=== PATIENT | female | born 1965 | race Caucasian/White ===

== ENCOUNTER → 2024-03-16 07:36 | Outpatient (REF) | payer BC, SELFPAY ==
[2024-03-16 08:46] LABS: % Eosinophils 2.9 % (0-6); % Immature Granulocytes 0.3 % (0-0.5); % Lymphocytes 41.2 % (20.5-51.1); % Monocytes 7.7 % (1.7-9.3); % Neutrophils 46.9 % (42.2-75.2); Absolute Basophils 0.1 10^3/uL (0-0.2); Absolute Eosinophils 0.2 10^3/uL (0-0.7); Absolute Lymphocytes 2.6 10^3/uL (1.2-3.4); Absolute Monocytes 0.5 10^3/uL (0.1-0.6); Absolute Neutrophils 2.9 10^3/uL (1.4-6.5); Hematocrit 43.1 % (37.0-47.0); Hemoglobin 14.2 g/dL (12.0-16.0); Mean Corp Hgb Conc. 32.9 g/dL (33.0-37.0); Mean Corpuscular Hgb 30.3 pg (27.0-31.0); Mean Corpuscular Volume 91.9 fL (81.0-99.0); Mean Platelet Volume 9.5 fL (7.4-10.4); Nucleated Red Blood Cells % 0 %; Platelet Count 258 10^3/uL (130-400); Red Blood Cell Count 4.69 10^6/uL (4.20-5.40); Red Cell Dist. Width 13.1 % (11.5-14.5); White Blood Cell Count 6.2 10^3/uL (4.8-10.8)
[2024-03-16 08:53] LABS: Urine Albumin Negative (Neg - Trace); Urine Bilirubin Negative (Negative); Urine Character Clear (Clear); Urine Color Yellow; Urine Glucose Negative (Negative); Urine Ketone Negative (Negative); Urine Leukocyte Trace (Negative); Urine Nitrite Negative (Negative); Urine Occult Blood 1+ (Negative); Urine Specific Gravity 1.025 (<1.030); Urine Urobilinogen Negative (Neg - 1+)
[2024-03-16 09:30] LABS: ALT (SGPT) 45 U/L (0-35); AST (SGOT) 39 U/L (14-36); Albumin 4.9 g/dl (3.5-5.0); Alkaline Phosphatase 80 U/L (38-126); Blood Urea Nitrogen 17 mg/dl (7-17); Calcium 10.4 mg/dl (8.4-10.2); Carbon Dioxide 28 mmol/L (22-30); Chloride 105 mmol/L (98-107); Glucose 101 mg/dl (70-99); HDL Cholesterol 67 mg/dl; LDL Cholesterol, Calculated 136 mg/dl; Potassium 5.1 mmol/L (3.5-5.1); Sodium 139 mmol/L (135-145); Total Bilirubin 0.7 mg/dl (0.2-1.3); Total Cholesterol 227 mg/dl (50-199); Triglyceride 122 mg/dl (10-149); Very Low Density Lipoprotein 24 mg/dl (0-30); eGFR > 60.00
[2024-03-16 09:31] LABS: Glycohemoglobin (HgbA1c) 5.9 % (4.0-5.6)
[2024-03-16 09:39] LABS: Urine White Cell 0-2 /HPF (0-5)
[2024-03-16 09:54] LABS: TSH Reflex To Free T4 0.63 uIU/ml (0.47-4.68)
== END ==
LOC: REG 07:36
PROVIDERS: ATTENDING PHYSICIAN Emergency Medicine
DX: Z00.00 Encounter for general adult medical examination without abnormal findings (principal); R73.01 Impaired fasting glucose; E78.00 Pure hypercholesterolemia, unspecified; K76.0 Fatty (change of) liver, not elsewhere classified
CPT/HCPCS: 36415; 80053; 80061; 81003; 81015; 83036; 84443; 85025

== ENCOUNTER → 2024-03-21 13:34 | Outpatient (REF) | payer BC, SELFPAY | LOC: CLAB 13:34 | PROVIDERS: ATTENDING PHYSICIAN Emergency Medicine | DX: R73.03 Prediabetes (principal); R82.90 Unspecified abnormal findings in urine | CPT/HCPCS: 87086 ==

== ENCOUNTER 2024-05-19 08:33 | Emergency (ER) | payer BC, SELFPAY ==
[2024-05-19 08:34] VITALS: BP 141/91
[2024-05-19 08:41] VITALS: BMI 27.9
--- NOTE | 2024-05-19 08:44 | ED.SKININJ ---
HPI-Injury
General
Chief Complaint: Ear Problem
Source: patient
Exam Limitations: none
Time Seen by Provider: 05/19/24 08:38
Nursing documentation reviewed up to this point in time: agreed with
History of Present Illness-Injury
Initial Injury comments:
58-year-old female wears hearing aids states a piece of her hearing aid is stuck in the right ear since last evening. Denies ear pain
Past History
Past History
ED Past Medical History: Hypercholesterolemia and Other (Diverticulitis)
ED Past Surgical History: Other (mos)
Social History
Tobacco: Non-smoker
Personal:
Living: with family
Family History
Family History: Unable to obtain
Review of Systems
Review of Systems
Allergies reviewed?: Yes
All Other Systems: ROS reviewed and negative except as documented in HPI and ROS
EENT: Reports other (piece of hearing aid tip stuck in right ear)
Skin Exam
Foreign Body
Right Ear:
Foreign body is: other (mid ear canal)
Foreign body can be visualized?: Yes
Phy Exam
Physical Exam
Physical Exam:
PHYSICAL EXAMINATION:
General: no apparent distress, not acutely ill
Neuro: alert and oriented.
Psychiatric: well kept. interactive and cooperative
Musculoskeletal: Moves with ease
Skin: Warm, pink.
Course
Vital Signs
Initial and Last Documented VS:
Initial Vital Signs
Temp Pulse Resp BP Pulse Ox
98.1 F 98 16 141/91 98
05/19/24 08:34 05/19/24 08:34 05/19/24 08:34 05/19/24 08:34 05/19/24 08:34
Last Documented Vital Signs
Temp Pulse Resp BP Pulse Ox
98.1 F 98 16 141/91 98
05/19/24 08:34 05/19/24 08:34 05/19/24 08:34 05/19/24 08:34 05/19/24 08:34
Procedures
Foreign Body Removal-Ear
Right External canal:
Tenderness: none
Any local drainage: none
Removal of foreign body using: alligator forceps
Exam of canal after removal: abrasion/external canal (tiny superfical abrasion distal canal)
MDM/Problems Addressed
Differential Diagnosis Includes:
Ear FB, ear canal infection, Rupture TM
MDM/Problems Addressed:
58-year-old female wears hearing aids states a piece of her hearing aid is stuck in the right ear since last evening. Denies ear pain
Soft black rubber tip of hearing aid easily removed with alligator forceps. Mild abrasion distal canal. TM intact. No need for antibiotic drops
*Critical Care Note
Total Time (30-74mins, 75-104mins- exclusive of procedures): Not Applicable
ED Attending Note
-
Portions of this chart may have been created with voice recognition software.� Occasional wrong word or��sound alike� substitutions may have occurred due to the inherent limitations of voice recognition software.
Discharge Plan
Departure
Patient Disposition: Home (Routine Discharge)
Date of Disposition: 05/19/24
Time of Disposition: 08:49
Patient with high blood pressure during this ER visit?: Yes
Condition: Good
Discharge Problem:
Foreign body in right ear
Instructions: Foreign Body in Ear (DC)
Prescriptions:
No Action
ketorolac 10 MG tablet
10 mg PO Q6HPRN PRN (Reason: flank pain) Qty: 14 0RF
phenazopyridine 200 MG tablet
200 mg PO Q6HPRN PRN (Reason: urinary irritation) Qty: 20 1RF
Activity Restrictions/Additional Instructions:
As we discussed, you have a tiny superficial abrasion of the skin of the ear canal. It should heal just fine. It may feel a little itchy or irritated for a day or two
See your doctor for increasing pain in the ear.
Interventions
Interventions:
*Risk Screen - Suicide Last Done: 05/19/24 08:34
*General Assessment Last Done: 05/19/24 08:34
*Neglect/Abuse Screening Last Done: 05/19/24 08:34
ED- Fall Risk Assessment Last Done: 05/19/24 08:41
*ED COVID-19 Vaccine History Last Done: 05/19/24 08:41
*Nursing Disposition Last Done: 05/19/24 09:00
Discharge Date and Time
Discharge Date/Time: 05/19/24 09:00
Print Language: LIBERIAN
== END 2024-05-19 09:00 | disposition home or self-care (01) ==
LOC: EMR 08:33
PROVIDERS: EMERGENCY PHYSICIAN Student in an Organized Health Care Education/Training Program; FAMILY PHYSICIAN Emergency Medicine
DX: T16.1XXA Foreign body in right ear, initial encounter (principal); S00.411A Abrasion of right ear, initial encounter; W44.G1XA Audio device entering into or through a natural orifice, initial encounter
CPT/HCPCS: 99282; 69200

== ENCOUNTER → 2024-06-04 13:36 | Outpatient (REF) | payer BC, SELFPAY | LOC: HWRAD 13:36 | PROVIDERS: ATTENDING PHYSICIAN Nurse Practitioner Adult Health; FAMILY PHYSICIAN Emergency Medicine | DX: Z12.31 Encounter for screening mammogram for malignant neoplasm of breast (principal); Z78.0 Asymptomatic menopausal state | CPT/HCPCS: 77063; 77067; 77080 ==

== ENCOUNTER 2024-06-18 10:09 | Outpatient (RCR) | payer BC, SELFPAY | END 2024-06-18 23:59 | disposition home or self-care (01) | LOC: RPT 10:09 | PROVIDERS: ATTENDING PHYSICIAN Physician Assistant; FAMILY PHYSICIAN Emergency Medicine | DX: M25.551 Pain in right hip (principal); M25.552 Pain in left hip; Z73.6 Limitation of activities due to disability | CPT/HCPCS: 97110; 97162 ==

== ENCOUNTER 2024-07-02 14:02 | Outpatient (RCR) | payer BC, SELFPAY | END 2024-07-02 23:59 | disposition home or self-care (01) | LOC: RPT 14:02 | PROVIDERS: ATTENDING PHYSICIAN Physician Assistant; FAMILY PHYSICIAN Emergency Medicine | DX: M25.551 Pain in right hip (principal); M25.552 Pain in left hip; Z73.6 Limitation of activities due to disability | CPT/HCPCS: 97110 ==

== ENCOUNTER 2024-07-23 14:00 | Outpatient (RCR) | payer BC, SELFPAY | END 2024-07-23 23:59 | disposition home or self-care (01) | LOC: RPT 14:00 | PROVIDERS: ATTENDING PHYSICIAN Physician Assistant; FAMILY PHYSICIAN Emergency Medicine | DX: M25.551 Pain in right hip (principal); M25.552 Pain in left hip; Z73.6 Limitation of activities due to disability | CPT/HCPCS: 97110 ==

== ENCOUNTER → 2024-09-14 08:09 | Outpatient (REF) | payer BC, SELFPAY ==
[2024-09-14 09:52] LABS: ALT (SGPT) 49 U/L (0-35); AST (SGOT) 54 U/L (14-36); Albumin 4.7 g/dl (3.5-5.0); Alkaline Phosphatase 63 U/L (38-126); Blood Urea Nitrogen 11 mg/dl (7-17); Calcium 9.9 mg/dl (8.4-10.2); Carbon Dioxide 24 mmol/L (22-30); Chloride 107 mmol/L (98-107); Glucose 104 mg/dl (70-99); HDL Cholesterol 69 mg/dl; LDL Cholesterol, Calculated 119 mg/dl; Potassium 4.7 mmol/L (3.5-5.1); Sodium 144 mmol/L (135-145); Total Bilirubin 0.5 mg/dl (0.2-1.3); Total Cholesterol 203 mg/dl (50-199); Total Protein 7.6 g/dl (6.3-8.2); Triglyceride 77 mg/dl (10-149); Very Low Density Lipoprotein 15 mg/dl (0-30); eGFR > 60.00
[2024-09-14 10:16] LABS: TSH 1.56 uIU/ml (0.47-4.68)
[2024-09-14 10:22] LABS: Glycohemoglobin (HgbA1c) 5.6 % (4.0-5.6)
== END ==
LOC: REG 08:09
PROVIDERS: ATTENDING PHYSICIAN Emergency Medicine
DX: E78.00 Pure hypercholesterolemia, unspecified (principal); R73.03 Prediabetes; Z12.11 Encounter for screening for malignant neoplasm of colon
CPT/HCPCS: 36415; 80053; 80061; 83036; 84443

== ENCOUNTER → 2025-07-18 12:23 | Outpatient (REF) | payer BC, SELFPAY | LOC: HWWDC 12:23 | PROVIDERS: ATTENDING PHYSICIAN Nurse Practitioner Adult Health; FAMILY PHYSICIAN Family Medicine | DX: Z12.31 Encounter for screening mammogram for malignant neoplasm of breast (principal) | CPT/HCPCS: 77063; 77067 ==

== ENCOUNTER → 2025-09-03 10:36 | Outpatient (REF) | payer BC, SELFPAY ==
[2025-09-03 11:20] LABS: Hematocrit 43.9 % (37.0-47.0); Hemoglobin 14.4 g/dL (12.0-16.0); Mean Corp Hgb Conc. 32.8 g/dL (33.0-37.0); Mean Corpuscular Volume 93.4 fL (81.0-99.0); Nucleated Red Blood Cells % 0 %; Platelet Count 275 10^3/uL (130-400); Red Cell Dist. Width 12.7 % (11.5-14.5)
[2025-09-03 11:57] LABS: ALT (SGPT) 112 U/L (0-35); AST (SGOT) 78 U/L (14-36); Albumin 4.8 g/dl (3.5-5.0); Alkaline Phosphatase 66 U/L (38-126); Blood Urea Nitrogen 11 mg/dl (7-17); Calcium 9.4 mg/dl (8.4-10.2); Carbon Dioxide 28 mmol/L (22-30); Chloride 107 mmol/L (98-107); Glucose 89 mg/dl (70-99); HDL Cholesterol 64 mg/dl; LDL Cholesterol, Calculated 125 mg/dl; Potassium 4.9 mmol/L (3.5-5.1); Sodium 141 mmol/L (135-145); Total Protein 7.8 g/dl (6.3-8.2); Very Low Density Lipoprotein 24 mg/dl (0-30); eGFR > 60.00
[2025-09-03 12:11] LABS: Vitamin D, 25-OH*** 54.1 ng/mL (30-80)
[2025-09-03 12:25] LABS: TSH 2.13 uIU/ml (0.47-4.68)
[2025-09-03 13:06] LABS: Glycohemoglobin (HgbA1c) 5.7 % (4.0-5.6)
== END ==
LOC: REG 10:36
PROVIDERS: ATTENDING PHYSICIAN Nurse Practitioner Family
DX: E55.9 Vitamin D deficiency, unspecified (principal); Z13.29 Encounter for screening for other suspected endocrine disorder; E78.00 Pure hypercholesterolemia, unspecified; Z13.0 Encounter for screening for diseases of the blood and blood-forming organs and certain disorders involving the immune mechanism; Z13.89 Encounter for screening for other disorder; R73.03 Prediabetes
CPT/HCPCS: 36415; 80053; 80061; 82306; 83036; 84443; 85025

== ENCOUNTER → 2025-10-08 08:20 | Outpatient (REF) | payer BC, SELFPAY | LOC: RAD 08:20 | PROVIDERS: ATTENDING PHYSICIAN Nurse Practitioner Family; FAMILY PHYSICIAN Family Medicine | DX: R74.8 Abnormal levels of other serum enzymes (principal); M79.642 Pain in left hand; M79.641 Pain in right hand | CPT/HCPCS: 73110; 73130; 76700 ==